=== PATIENT | male | born 1960 | race Caucasian/White ===

== ENCOUNTER 2020-11-04 12:13 | Emergency (ER) | payer BC, SELFPAY ==
[2020-11-04 12:45] VITALS: BP 137/87; PULSE 93; RESP 20; TEMP 37.3; O2SAT 98; BMI 28.5
--- NOTE | 2020-11-04 13:03 | W.ED.LOWEXIN ---
HPI - Extremity Injury (Lower) General: Chief Complaint: Extremity Injury, Lower Stated Complaint: RIGHT FOOT INJURY Time Seen by Provider: 11/04/20 13:03 Source: patient Mode of arrival: ambulatory Limitations: no limitations History of Present Illness: HPI Narrative: Patient is a 60-year-old male who presents to ED today with a complaint of a right lower extremity injury that he sustained 2 hours ago after a tree fell and struck the lateral aspect of his lower leg. He states the blow of the tree caused his ankle to bend like it was not supposed to . No other injuries or complaints at this time. He has not been able to be ambulatory on the extremity secondary to pain. MD complaint: leg injury, ankle injury and foot injury Onset (ago): hour(s) Injury: Right: ankle and foot Place: home Severity: severe Relieving factors: immobilization Exacerbating factors: weight bearing, movement and palpation Associated symptoms: Reports inability to bear weight Other symptoms: none Review of Systems Const: Denies: fever(s), chills, fatigue or malaise Card: Denies: chest pain Resp: Denies: dyspnea GI: Denies: nausea or vomiting Musc: Reports: extremity pain (R LE), joint pain (R ankle), joint swelling (R ankle) and limited range of motion Neuro: Denies: numbness in extremities, weakness in extremities or sensory changes Physical Exam Const: COMMON NORMALS: no acute distress, average body habitus, patient oriented x3, no limitations, healthy appearing, alert and well nourished HENMT: COMMON NORMALS: normocephalic and atraumatic HEAD & SCALP: normocephalic and atraumatic Extremity: GENERAL: Yes normal exam except as noted OTHER: TTP R lateral lower leg; TTP and significant swelling throughout R ankle; TTP lateral R foot extremity NV intact Neuro: COMMON NORMALS: patient oriented x3, moves all extremities, no focal motor deficits and no sensory deficits noted SENSORIUM/ORIENTATION: Yes alert GAIT: Yes Unable to assess gait Skin: COMMON NORMALS: no rashes or lesions noted GENERAL SKIN EXAM: no rashes or lesions noted TRAUMA: no lacerations or abrasions Course Consultations: Consultation #1: Dr. Mcdonald-recommends light posterior splint and PCR COVID and have patient come to orthopedic clinic following DC and he will plan accordingly for surgery Vital Signs: Vital signs: Vital Signs Temperature 99.2 F 11/04/20 12:45 Pulse Rate 93 11/04/20 12:45 Respiratory Rate 20 H 11/04/20 12:45 Blood Pressure 137/87 11/04/20 12:45 Pulse Oximetry 98 11/04/20 12:45 MDM - Extremity Injury (Lower) Imaging Data^: XR R foot: Radiologist's impression: [facility] [address] [place] [address]. [place] [address] XRay Report Signed Patient: Pedro Gutierrez Unit #: [id number] : 1960 Age/Sex: 60 / M ADM Date: 11/04/20 Loc: ER Room/Bed: Attending Dr: Ordering Provider/Ordering MD: Leslee Reyes Date of Service: 11/04/20 Procedure(s): XR foot RT min 3V* 84517 Accession Number(s): [id number] Report Number: [id number] WS: [id number] Right foot, 3 views, 11/04/2020 Clinical Data: injury Comparison: None. Findings: No foot fractures or dislocations are seen. No bone destruction or erosion is noted. There is minimal osteoarthritic narrowing and cyst formation of the right first MTP joint.There is a fracture of the distal right fibula and probably the medial malleolus. XR/XR foot RT min 3V* 88032 Impression: 1. Negative for foot fractures. 2. Bimalleolar fracture. Dictated By: Tomasa Conde MD Signed By: Tomasa Conde MD Signed Date/Time: 11/04/20 1341 DD/ 1339 XR R ankle: Radiologist's impression: [facility] [address] [place] [id number] XRay Report Signed Patient: Pedro Gutierrez Unit #: [id number] : 1960 Age/Sex: 60 / M ADM Date: 11/04/20 Loc: ER Room/Bed: Attending Dr: Ordering Provider/Ordering MD: Leslee Reyes Date of Service: 11/04/20 Procedure(s): XR ankle RT min 3V* 26721 Accession Number(s): [id number] Report Number: [id number] WS: [id number] Right ankle, 3 views, 11/04/2020 Clinical Data: injury Comparison: None. Findings: There is an oblique fracture of the distal right fibula. There is a small irregularity in the medial malleolus which may represent a vertical fracture. Soft tissue swelling over the distal right fibula and the medial malleolus. The ankle mortise is intact. XR/XR ankle RT min 3V* 09101 Impression: 1. Oblique fracture distal right fibula. 2. Probable vertical fracture of the right medial malleolus. Dictated By: Tomasa Conde MD Signed By: Tomasa Conde MD Signed Date/Time: 11/04/20 1343 DD/ 1341 XR R tib/fib: Radiologist's impression: [facility] [address] [address]VIvp ReportSigned Patient: Pedro GutierrezUnit #: [id number]: 1960Acct#:[id number]/Sex: 60 / MADM Date: 11/04/20Loc: ERRoom/Bed:Attending Dr: Ordering Provider/Ordering MD: Leslee Reyes Date of Service: 11/04/20 Procedure(s): XR tibia fibula RT 2V 64573 Accession Number(s): [id number] Report Number: [id number] WS: [id number] Right leg including the tibia and fibula, AP and lateral views, 11/04/2020. Clinical Data: injury Comparison: None. Findings: Fracture of the distal right fibula. There may be a small vertical fracture of the medial malleolus. The proximal tibia and fibula are normal. The visualized ankle mortise is unremarkable. There is soft tissue swelling over the medial and lateral malleolus. XR/XR tibia fibula RT 2V 93886 Impression: 1. Fracture of distal right fibula. 2. Possible small vertical fracture of medial malleolus. Dictated By:Tomasa Conde MDSigned By:Tomasa Conde MDSigned Date/Time:11/04/20 1345DD/ 1344 Discharge Plan Discharge Patient Disposition: Home Clinical Impression: Closed fracture of distal end of right fibula Qualifiers: Encounter type: initial encounter Fracture morphology: other fracture Qualified Code(s): S82.831A - Other fracture of upper and lower end of right fibula, initial encounter for closed fracture Fracture of medial malleolus of right tibia Qualifiers: Encounter type: initial encounter Fracture type: closed Fracture alignment: nondisplaced Qualified Code(s): S82.54XA - Nondisplaced fracture of medial malleolus of right tibia, initial encounter for closed fracture Condition: Stable Prescriptions: New hydrocodone-acetaminophen 5-325 mg tablet 1 tab PO Q4H PRN (Reason: pain) Qty: 20 RF: 0 Discharge Orders: Discharge ED (Routine); Ordered 11/04/20 Ordered By: Leslee Reyes Referrals: Sarahy Jarvis MD [Primary Care Provider] - Patient Instructions: Ankle Fracture (ED), Opioid Safety Activity Restrictions/Additional Instructions: [employer] [facility] is committed to fighting the nationwide opiate epidemic. We are providing ALL patients with information regarding opiate safety. If you received opiate pain medication during your stay or if you received a prescription for opiate pain medication-please review this handout. If not, you may disregard. Thank you. You stated you have a pair of crutches in your car. You need to be non weightbearing on the extremity. As we discussed you need to go straight to the orthopedic clinic to see Dr. Mcdonald. He will plan for surgery based on his clinical assessment. You have been provided a prescription for pain medications. COVID testing has also been collected to screen you for surgery. 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
--- NOTE | 2020-11-04 13:25 | XR_ITS ---
WS: [id number] Right foot, 3 views, 11/04/2020 Clinical Data: injury Comparison: None. Findings: No foot fractures or dislocations are seen. No bone destruction or erosion is noted. There is minimal osteoarthritic narrowing and cyst formation of the right first MTP joint.There is a fracture of the distal right fibula and probably the medial malleolus. XR/XR foot RT min 3V* 37620 Impression: 1. Negative for foot fractures. 2. Bimalleolar fracture.
--- NOTE | 2020-11-04 13:25 | XR_ITS ---
WS: [id number] Right leg including the tibia and fibula, AP and lateral views, 11/04/2020. Clinical Data: injury Comparison: None. Findings: Fracture of the distal right fibula. There may be a small vertical fracture of the medial malleolus. The proximal tibia and fibula are normal. The visualized ankle mortise is unremarkable. There is soft tissue swelling over the medial and lateral malleolus. XR/XR tibia fibula RT 2V 81419 Impression: 1. Fracture of distal right fibula. 2. Possible small vertical fracture of medial malleolus.
--- NOTE | 2020-11-04 13:25 | XR_ITS ---
WS: [id number] Right ankle, 3 views, 11/04/2020 Clinical Data: injury Comparison: None. Findings: There is an oblique fracture of the distal right fibula. There is a small irregularity in the medial malleolus which may represent a vertical fracture. Soft tissue swelling over the distal right fibula and the medial malleolus. The ankle mortise is inta ct. XR/XR ankle RT min 3V* 31817 Impression: 1. Oblique fracture distal right fibula. 2. Probable vertical fracture of the right medial malleolus.
[2020-11-04 14:30] VITALS: RESP 14; O2SAT 96
[2020-11-04] MEDS: morphine 4 mg/mL SDV 1 mL IM (14:30)
[2020-11-04 14:43] VITALS: BP 150/85; PULSE 91; RESP 14; O2SAT 93
[2020-11-05 14:49] LABS: Coronavirus Test Green County Not Detected
--- NOTE | 2020-11-05 18:41 | PC.NURSE ---
gave pt negative covid results
== END 2020-11-04 14:52 | disposition home or self-care (01) ==
PROVIDERS: Emergency Provider Physician Assistant; PCP Family Medicine
DX: S82.831A Other fracture of upper and lower end of right fibula, initial encounter for closed fracture (principal); S82.54XA Nondisplaced fracture of medial malleolus of right tibia, initial encounter for closed fracture; W20.8XXA Other cause of strike by thrown, projected or falling object, initial encounter; Z20.822 Contact with and (suspected) exposure to COVID-19
CPT/HCPCS: 29515; 73590; 73610; 73630; 87635; 96372; 99283; J2270

== ENCOUNTER 2020-11-05 11:33 | Day surgery (SDC) | payer BC, SELFPAY ==
[2020-11-04 16:53] VITALS: BMI 29.8
[2020-11-05] VITALS (7 sets, daily range): BP systolic 127–152; BP diastolic 87–131; PULSE 89–96; RESP 14–20; TEMP 36.2–36.6; O2SAT 94–99
--- NOTE | 2020-11-05 | SCC_ITS ---
Procedure Done: Open reduction internal fixation right distal fibula 3 seconds of fluoroscopic guidance, for a cumulative dose of 0.090 mGy, was provided to Dr. Mcdonald by the radiology department. C-arm images of the RIGHT ankle were saved for the patient's permanent record. [facility] HOSPITALSharon
[2020-11-05] MEDS: sodium chloride 0.9% 1,000 ML 30 ML IV (12:25)
--- NOTE | 2020-11-05 13:28 | ANES.PREANE2 ---
Pre-Anesthetic Assessment Pre-Anesthetic Assessment: Height/Weight: Height 1.83 m Weight 99.79 kg Preop Diagnosis: Right ankle fracture Proposed Procedure: Operation Date: 11/05/20 12:45 Proposed Procedures p ORIF RIGHT BIMALLEOLAR FRACTURE 11494 S82.841A(Right) - Yair Mcdonald DPM Familial anesthetic complications: None Was Beta Tremaine taken within 24 hours: N/A Was Clonidine taken within 24 hours: N/A Last intake: Intake Last Liquid Date 11/04/20 Last Liquid Time 23:29 Last Solid Date 11/04/20 Last Solid Time 19:00 Social: Social History: No alcohol and No tobacco Exam: Pre-Anes Outpt Exam: alert, oriented x 3, clear to auscultation bilaterally and regular rate & rhythm Airway: Cervical ROM: WNL MP: 3 Dentition: Full Anesthetic Plan: ASA status: 1 Anesthesia: General and Regional (specify below) Risk of > 500 ml blood loss (7ml/kg in children): No Meds/Allergies Current Medications: Current Medications Generic Name Dose Route Start Last Admin Trade Name Freq PRN Reason Stop Dose Admin Sodium Chloride 1,000 mls @ 30 ml s/hr 11/05/20 12:15 11/05/20 12:25 Sodium Chloride 0.9% IV 11/06/20 12:14 30 mls/hr .Q24H TY Administration Data Anesthesia Cardiac Studies: No Data to Display
--- NOTE | 2020-11-05 13:28 | ANES.PROC ---
Anesthesia Procedures Procedure/Date: 11/05/20 Nerve Block ^: Nerve Block 1: Main Anesthesia: general anesthesia Time Out Performed: Yes Consent: requested by attending/covering physician, from patient, risks and benefits reviewed and patient agrees to proceed Nerve block location: popliteal (R) Anesthesia monitors applied: pulse oximetry, EKG, BP cuff and oxygen Nerve block position: supine Anesthetic Used: ropivicaine 0.5% and with decadron (4 mg) Amount of anesthesia used (mL): 30 Ultrasound used to: recognize landmarks Nerve Stimulator Used?: No Interscalene/Femoral BLK: 4 stimuplex 21 g needle used for position and inplane approach, visualize local anesthetic spread and no vascular puncture identified Injection: neg aspiration of heme Patient Tolerated Procedure: well and no complications Complications: none
[2020-11-05] MEDS: midazolam 1 mg/mL INJ 2 mL 2 MG IVP (13:29)
--- NOTE | 2020-11-05 14:18 | P.HPUD_ITS ---
Surgery/Procedure H&P Update DATE OF PROCEDURE: November 05, 2020 DATE H&P PERFORMED: 11/04/20 H&P UPDATE INFORMATION: I have reviewed H&P completed within last 30 days, I have examined patient prior to procedure, No changes to prior documentation and H&P is in [facility] EMR on date indicated PREOP DIAGNOSIS: Right ankle fracture PLANNED PROCEDURE: Operation Date: 11/05/20 12:45 Proposed Procedures p ORIF RIGHT BIMALLEOLAR FRACTURE 75480 S82.841A(Right) - Yair Mcdonald DPM
--- NOTE | 2020-11-05 14:38 | XR_ITS ---
WS: [id number] Right ankle, 3 views, 11/05/2020 Clinical Data: post op Comparison: Right leg, 11/04/2020 Findings: Internal fixation of the distal right fibular fracture with a plate and multiple screws has been done . There are surgical paz adjacent to the subcutaneous tissue of the distal right lateral leg. XR/XR ankle RT min 3V* 55190 Impression: Internal fixation of distal right fibular fracture.
--- NOTE | 2020-11-05 15:24 | PM.OP ---
Operative Report Date of procedure: November 05, 2020 Pre-op Diagnosis: Right Distal fibular fractuer Post-op diagnosis: same Post-op Findings: None Procedure Done: Open reduction internal fixation right distal fibula Implants: [place] 28 one third tubular plate. [place] 28 3.5 mm locking screws x8, 3-0 Vicryl, skin paz Pathology: none sent Surgeon: Yair Mcdonald D.P.M. Motorcycle Builder: Armin Anesthesia: General Estimated blood loss: Less than 5 mL Tourniquet time: 22 IV fluids: none Urine output: none Complications: none Findings: none Condition: stable Disposition: PACU Brief History: Patient sustained a right bimalleolar equivalent from a traumatic injury has a displaced distal fibular fracture Antonio Perez C from blunt force trauma I recommended open reduction internal fixation risks include pain, bleeding, numbness, infection, hardware failure, hardware irritation, delayed union, malunion, nonunion, posttraumatic arthritis of the right ankle, chronic swelling, need for further surgical intervention also risks for deep vein thrombosis, heart attack, stroke and . Patient is agreeable wishes to proceed has been n.p.o. since midnight, Covid screening negative, informed consent signed I initialed his right ankle, no guarantees written, expressed or implied. Procedure: Under mild sedation the patient was brought to the operating room and placed on the operating table in supine position. Preoperatively a popliteal block was administered per anesthesia. General anesthesia was then administered by the anesthesia service. Saphenous nerve block consisting of one-to-one mixture 0.5% Marcaine plain and 1% lidocaine plain performed by myself total of 5 cc. Well-padded pneumatic tourniquet applied to the right high calf. Right lower extremity was then scrubbed, prepped and draped utilizing normal aseptic technique. Right foot and ankle were wrapped with an Esmarch bandage and the tourniquet inflated to 250 mmHg. Attention was directed to the right lateral ankle where the distal fibula was palpated. Linear longitudinal incision was made just superficial to the distal fibula and a linear longitudinal fashion with dissection carried down to periosteum utilizing a combination of blunt and sharp technique. All bleeders were ligated and cauterized as necessary care was taken to retract and preserve neurovascular and tendinous structures. Linear periosteal incision was made fracture site was distracted and evacuated of hematoma with curettage and flush followed by reduction and fixation utilizing a one third tubular plate with a combination of locking screws and various length total of 8 screws with excellent bony apposition and compression noted. Fibula was out to length without rotational deformity after fixation cotton hook test was utilized and no syndesmotic injury was appreciated. Anatomical reduction in all 3 planes appreciated utilizing fluoroscopy. Incision site was flushed with saline solution and periosteum and subcutaneous tissue closed utilizing 3-0 Vicryl and skin closed utilizing skin paz. Incision was dressed with Adaptic, sterile 4 x 4, Kerlix, Ariel wrap followed by application of a cam boot. Tourniquet was deflated and a prompt hyperemic response is noted to the distal digits of the right foot. Patient tolerated the procedure and anesthesia well and was transferred to the PACU with vital signs stable and vascular status intact. Following a period of postoperative monitoring he will be discharged home is to remain strict nonweightbearing to the right lower extremity and elevate his right foot at all times while at rest. He is provided instructions on at home care as well as follow-up information on discharge paperwork.
--- NOTE | 2020-11-05 18:26 | ANE.PACU2 ---
Inpatient post-anesthesia follow up: Airway intact: Yes Vital signs: Temperature 97.9 F Pulse Rate 91 Respiratory Rate 17 Blood Pressure 127/88 Pulse Oximetry 96 Oxygen Delivery Me thod Room Air Oxygen Flow Rate 8 Fraction of Inspir ed Oxygen Hydration adequate: Yes Nausea and vomiting: No Pain level: 2 Mental status: Baseline
== END 2020-11-05 16:30 | disposition home or self-care (01) ==
PROVIDERS: PCP Family Medicine; Visit Provider Podiatrist Foot & Ankle Surgery
PROC: (CPT 27792; principal; 2020-11-05 12:45)
DX: S82.831A Other fracture of upper and lower end of right fibula, initial encounter for closed fracture (principal); S82.51XA Displaced fracture of medial malleolus of right tibia, initial encounter for closed fracture; W22.8XXA Striking against or struck by other objects, initial encounter
CPT/HCPCS: 27792; 73610; 76000; 96374; C1713; J1100; J2250; J2405; J2704; J2710; J2795; J3010; J3490; J7030

== ENCOUNTER → 2020-11-18 15:53 | Outpatient (BNVA) | payer BC, SELFPAY | PROVIDERS: PCP Family Medicine; Visit Provider Podiatrist Foot & Ankle Surgery | DX: Z98.890 Other specified postprocedural states (principal) | CPT/HCPCS: 73610 ==

== ENCOUNTER → 2020-12-02 13:29 | Outpatient (BNVA) | payer BC, SELFPAY | PROVIDERS: PCP Family Medicine; Visit Provider Podiatrist Foot & Ankle Surgery | DX: Z98.890 Other specified postprocedural states (principal); S82.391A Other fracture of lower end of right tibia, initial encounter for closed fracture | CPT/HCPCS: 73610 ==

== ENCOUNTER → 2020-12-16 14:25 | Outpatient (BNVA) | payer BC, SELFPAY | PROVIDERS: PCP Family Medicine; Visit Provider Podiatrist Foot & Ankle Surgery | DX: Z98.890 Other specified postprocedural states (principal) | CPT/HCPCS: 73610 ==

== ENCOUNTER → 2020-12-30 13:40 | Outpatient (BNVA) | payer BC, SELFPAY | PROVIDERS: PCP Family Medicine; Visit Provider Podiatrist Foot & Ankle Surgery | DX: Z98.890 Other specified postprocedural states (principal); S82.391D Other fracture of lower end of right tibia, subsequent encounter for closed fracture with routine healing | CPT/HCPCS: 73610 ==

== ENCOUNTER → 2021-02-03 12:52 | Outpatient (BNVA) | payer BC, SELFPAY | PROVIDERS: PCP Family Medicine; Visit Provider Podiatrist Foot & Ankle Surgery | DX: Z98.890 Other specified postprocedural states (principal); S82.391D Other fracture of lower end of right tibia, subsequent encounter for closed fracture with routine healing; X58.XXXD Exposure to other specified factors, subsequent encounter | CPT/HCPCS: 73610 ==

== ENCOUNTER 2021-02-11 11:49 | Emergency (ER) | payer BC, SELFPAY ==
[2021-02-11] VITALS (7 sets, daily range): BP systolic 145–151; BP diastolic 87–95; PULSE 62–101; RESP 16–20; TEMP 36.6; O2SAT 90–98; BMI 29.8
--- NOTE | 2021-02-11 12:13 | XR_ITS ---
WS: [id number] PELVIS AND LEFT HIP HISTORY: injury/fall; one view pelvis too please COMPARISON: None available. LEFT hip: No acute fracture or dislocation. No destructive bone lesions. No significant narrowing of the hip joint. Hips are symmetric bilaterally. No pubic rami fracture identified. SI joints are normal. No soft tiss ue abnormality. XR/XR hip LT 2-3V wo/w pel* 82365 IMPRESSION: 1. No hip fracture. 2. Symmetric appearance of the bones and soft tissues of the pelvis.
--- NOTE | 2021-02-11 12:13 | W.ED.FALL ---
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 Patient states a few months ago he had a bimalleolar fracture repair to his right ankle so he believes he was favoring that extremity and states that one leg went forward and the other went backward and then he fell directly onto his left hip. Patient has been minimally ambulatory since the event but with significant discomfort. He states area will catch causing severe pain. He is not having pain anywhere distally to his extremity. He denies back pain. No other injuries or complaints at this time. MD complaint: fall Onset (ago): hour(s) Fall from: standing Fall witnessed: no Place fall occurred: other (outdoors/farm) Loss of consciousness: None Prolonged down time: no Symptoms prior to fall: none Severity: severe Quality: sharp Associated symptoms-after fall: Reports difficulty walking (secondary to pain); Denies abdominal pain, chest pain, headache(s) or neck pain Review of Systems Eyes: Denies: change in vision Card: Denies: chest pain Resp: Denies: dyspnea GI: Denies: abdominal pain Musc: Reports: joint pain (L hip/buttock); Denies: neck pain, back pain, extremity swelling or joint swelling Neuro: Reports: difficulty walking (secondary to pain); Denies: headache(s), numbness in extremities, weakness in extremities or sensory changes Physical Exam Const: COMMON NORMALS: average body habitus, patient oriented x3, no limitations, healthy appearing, alert and well nourished GENERAL APPEARANCE: in distress (pt appears in fairly significant discomfort ) HENMT: COMMON NORMALS: normocephalic and atraumatic HEAD & SCALP: normocephalic and atraumatic Resp: COMMON NORMALS: normal respiratory effort and clear to auscultation bilaterally AUSCULTATION: clear to auscultation bilaterally Cardio: COMMON NORMALS: regular rate and regular rhythm RATE: regular rate RHYTHM: regular rhythm GI: COMMON NORMALS: Normal to inspection, nondistended, normoactive bowel sounds present, Soft to palpation, non-tender, No hepatosplenomegaly present and no masses PALPATION: Yes Soft to palpation and Yes No hepatosplenomegaly present : COMMON NORMALS: Yes no CVA tenderness BLADDER/KIDNEY EXAM: Yes no CVA tenderness Back/Pelvis: COMMON NORMALS: no CVA tenderness, thoracic and lumbar spine normal to inspection, no thoracic nor lumbar tenderness and thoraco-lumbar ROM normal Extremity: GENERAL: Yes normal exam except as noted OTHER: no pain distally; hamstring musculature is not swollen, bruised, or tender; distal extremity with normal cap refill/pulses/and sensation no pain to sacrum/coccyx or lumbar spine Neuro: COMMON NORMALS: patient oriented x3, moves all extremities, no focal motor deficits and no sensory deficits noted SENSORIUM/ORIENTATION: Yes alert Skin: COMMON NORMALS: no rashes or lesions noted GENERAL SKIN EXAM: no rashes or lesions noted TRAUMA: no lacerations or abrasions Course ED course: Patient's pain has been significantly difficult to control while here despite Dexamethasone, Toradol, Norflex, Morphine, Dilaudid. I would not expect him to be able to perform ADLs at home with the amount of discomfort he is in. He is starting to now get pain distally over his hamstring. I spoke to Dr. De La Vega who recommended CT to evaluate further for this (should be able to see some inflammatory/hematoma changes) as we both feel hamstring tear/rupture could be likely. Plan could be to admit for pain control if needed. Vital Signs: Vital signs: Vital Signs Temperature 97.9 F 02/11/21 12:03 Pulse Rate 96 02/11/21 18:00 Respiratory Rate 16 02/11/21 18:00 Blood Pressure 151/95 02/11/21 18:00 Pulse Oximetry 95 02/11/21 18:00 MDM - Fall MDM Narrative: Medical decision making narrative: Care transferred to BRENNAN Dick pending CT results Imaging Data^: XR L hip/pelvis: Radiologist's impression: [address] [place] [address] XRay Report Signed Patient: ChrisbeatricePedro Unit #: [id number] : 1960 Age/Sex: 61 / M ADM Date: 02/11/21 Loc: ER Room/Bed: Attending Dr: Ordering Provider/Ordering MD: Leslee Reyes Date of Service: 02/11/21 Procedure(s): XR hip LT 2-3V wo/w pel* [id number] Accession Number(s): [id number] Report Number: [id number] WS: [id number] PELVIS AND LEFT HIP HISTORY: injury/fall; one view pelvis too please COMPARISON: None available. LEFT hip: No acute fracture or dislocation. No destructive bone lesions. No significant narrowing of the hip joint. Hips are symmetric bilaterally. No pubic rami fracture identified. SI joints are normal. No soft tissue abnormality. XR/XR hip LT 2-3V wo/w pel* [id number] IMPRESSION: 1. No hip fracture. 2. Symmetric appearance of the bones and soft tissues of the pelvis. Dictated By: Arabella Potter DO Signed By: Arabella Potter DO Signed Date/Time: 02/11/21 1252 DD/ 1249 Discharge Plan Discharge Patient Disposition: Home Clinical Impression: Acute leg pain Qualifiers: Laterality: left Qualified Code(s): M79.605 - Pain in left leg Condition: Stable Prescriptions: New hydrocodone-acetaminophen 5-325 mg tablet 1 - 2 tab PO TID PRN (Reason: pain) Qty: 20 RF: 0 No Action Allergy Relief (cetirizine) 10 mg Tablet 10 mg PO DAILY RF: 0 Prilosec 20 mg Capsule,Delayed Release(Dr/Ec) 20 mg PO DAILY RF: 0 Discharge Orders: Discharge ED (Routine); Ordered 02/11/21 Ordered By: Rajan Rothman Referrals: Sarahy Jarvis MD [Primary Care Provider] - Discharge Diet: Usual diet Discharge Activity: Increase activity as tolerated Patient Instructions: Musculoskeletal Pain (ED) Activity Restrictions/Additional Instructions: Follow-up with medical provider as directed. Take medications as prescribed. Return to the ER or your medical provider if condition worsens. Please read and understand discharge instructions. If any questions ask please. 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 Patient feels much better with pain medication received. Patient does not want to be admitted to the hospital for pain control would like to try pain medication at home. Patient will be discharged home with pain prescription follow-up primary care return here if worsening symptoms. Discharge Plan Discharge Patient Disposition: Home Clinical Impression: Acute leg pain Qualifiers: Laterality: left Qualified Code(s): M79.605 - Pain in left leg Condition: Stable Prescriptions: New hydrocodone-acetaminophen 5-325 mg tablet 1 - 2 tab PO TID PRN (Reason: pain) Qty: 20 RF: 0 No Action Allergy Relief (cetirizine) 10 mg Tablet 10 mg PO DAILY RF: 0 Prilosec 20 mg Capsule,Delayed Release(Dr/Ec) 20 mg PO DAILY RF: 0 Discharge Orders: Discharge ED (Routine); Ordered 02/11/21 Ordered By: Rajan Rothman Referrals: Sarahy Jarvis MD [Primary Care Provider] - Discharge Diet: Usual diet Discharge Activity: Increase activity as tolerated Patient Instructions: Musculoskeletal Pain (ED) Activity Restrictions/Additional Instructions: Follow-up with medical provider as directed. Take medications as prescribed. Return to the ER or your medical provider if condition worsens. Please read and understand discharge instructions. If any questions ask please. 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 Fwd Exam Comprehensive Documented by User: Tre De La Vega DO 02/12/21 07:40 HPI - Fall General: Chief Complaint: Fall Stated Complaint: FELL IN PASTURE: PAIN IN BACK Time Seen by Provider: 02/11/21 12:04 Course Vital Signs: Vital signs: Vital Signs Temperature 97.9 F 02/11/21 12:03 Pulse Rate 96 02/11/21 18:00 Respiratory Rate 16 02/11/21 18:00 Blood Pressure 151/95 02/11/21 18:00 Pulse Oximetry 95 02/11/21 18:00 MDM - Fall MDM Narrative: Medical decision making narrative: Chart reviewed and patient discussed with midlevel. Agree with assessment and plan. Discharge Plan Discharge Patient Disposition: Home Clinical Impression: Acute leg pain Qualifiers: Laterality: left Qualified Code(s): M79.605 - Pain in left leg Condition: Stable Prescriptions: New hydrocodone-acetaminophen 5-325 mg tablet 1 - 2 tab PO TID PRN (Reason: pain) Qty: 20 RF: 0 No Action Allergy Relief (cetirizine) 10 mg Tablet 10 mg PO DAILY RF: 0 Prilosec 20 mg Capsule,Delayed Release(Dr/Ec) 20 mg PO DAILY RF: 0 Discharge Orders: Discharge ED (Routine); Ordered 02/11/21 Ordered By: Rajan Rothman Referrals: Sarahy Jarvis MD [Primary Care Provider] - Discharge Diet: Usual diet Discharge Activity: Increase activity as tolerated Patient Instructions: Musculoskeletal Pain (ED) Activity Restrictions/Additional Instructions: Follow-up with medical provider as directed. Take medications as prescribed. Return to the ER or your medical provider if condition worsens. Please read and understand discharge instructions. If any questions ask please. 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 Fwd Exam Comprehensive
[2021-02-11] MEDS: ondansetron 2 mg/ML SDV 2 mL 4 MG IVP (12:21)
[2021-02-11] MEDS: morphine 4 mg/mL SDV 1 mL IVP (12:21)
[2021-02-11] MEDS: orphenadrine 30 mg/mL Inj 2 mL 60 MG IM (12:59)
[2021-02-11] MEDS: dexamethasone 10 mg/mL INJ IM (13:45)
[2021-02-11] MEDS: ketorolac 60 mg/2 mL INJ IM (13:46)
[2021-02-11] MEDS: HYDROmorphone 1 mg/mL INJ 1 mL SUBCUT (15:00)
--- NOTE | 2021-02-11 15:48 | CTR_ITS ---
PROCEDURE INFORMATION: Exam: CT Left Lower Extremity Without Contrast; Thigh Exam date and time: 02/11/2021 3:48 PM Age: 61 years old Clinical indication: Injury or trauma; Sprain or strain; Thigh or upper leg; Left; Patient HX: Slip and fall. Complains of posterior thigh pain; Additional info: L hip pain; Possible hamstring rupture TECHNIQUE: Imaging protocol: CT of the Left lower extremity without contrast was performed. Exam focused on the thigh. Radiation optimization: All CT scans at this facility use at least one of these dose optimization techniques: automated exposure control; mA and/or kV adjustment per patient size (includes targeted exams where dose is matched to clinical indication); or iterative reconstruction. COMPARISON: No relevant prior studies available. RADIATION DOSE METRICS: Total DLP (mGy-cm): FINDINGS: Bones/joints: Normal. No acute fracture or dislocation. Soft tissues: Please note, CT is not optimized to evaluate for hamstring tendon tear/rupture. There is no evident tendinous retraction on CT. No hematoma formation. CT/CT femur LT wo con* [id number] IMPRESSION: 1. No left hip fracture. 2. If there is persistent clinical concern for hamstring tear/rupture MRI would be the more optimized study. Radiation Dose CTDIVOL = (mGy): DLP = 1989.82 (mGy-cm)
== END 2021-02-11 18:07 | disposition home or self-care (01) ==
PROVIDERS: Emergency Provider Nurse Practitioner Family; PCP Family Medicine
DX: M79.605 Pain in left leg (principal); W18.30XA Fall on same level, unspecified, initial encounter; Y93.K9 Activity, other involving animal care; Y92.73 Farm field as the place of occurrence of the external cause
CPT/HCPCS: 73502; 73700; 96372; 96374; 96375; 99284; J1100; J1170; J1885; J2270; J2360; J2405

== ENCOUNTER → 2024-07-06 10:43 | Outpatient (BNVA) | payer BC, SELFPAY | PROVIDERS: PCP Family Medicine; Visit Provider Emergency Medicine | DX: R06.02 Shortness of breath (principal) | CPT/HCPCS: 87400; 87426 ==